=== PATIENT | male | born 1990 | race Caucasian/White ===

== ENCOUNTER 2018-10-21 21:04 | Inpatient (IN) | payer OTHER ==
[~2018-10-21] VITALS: Ht 180.3 cm; Wt 74.8 kg
[2018-10-21 21:14] VITALS: BP 133/83
[2018-10-21 23:40] LABS: ABSOLUTE BASOPHILS 0.1 thou/uL (0.0-0.2); ABSOLUTE EOSINOPHILS 0.1 thou/uL (0.0-0.7); ABSOLUTE MONOCYTES 0.6 thou/uL (0.0-1.2); ABSOLUTE NEUTROPHILS 4.7 thou/uL (1.6-8.1); BASOPHILS 0.9 %; EOSINOPHILS 0.8 %; HEMATOCRIT 40.1 % (42.0-52.0); HEMOGLOBIN 13.8 gm/dL (14.0-18.0); LYMPHOCYTES 26.8 %; MCH 32.2 pg (26.0-34.0); MCHC 34.4 g/dL (28.0-37.0); MCV 93.6 fL (80.0-100.0); MONOCYTES 7.6 %; MPV 8.2 fl. (7.2-11.1); NUCLEATED RBCS 0 /100WBC; PLATELET COUNT* 260 thou/uL (150-400); POLYS 63.9 %; RBC 4.29 mil/uL (4.50-6.00); RDW-CV 13.8 % (10.5-14.5); WBC 7.4 thou/uL (4.0-11.0)
[2018-10-22 00:24] LABS: ALBUMIN 3.9 g/dL (3.4-5.0); CREATININE 0.8 mg/dL (0.6-1.3); POTASSIUM 3.9 mmol/L (3.5-5.1); TOTAL BILIRUBIN 0.7 mg/dL (<0.1-1.0); TOTAL PROTEIN 8.5 g/dL (6.4-8.2)
[2018-10-22 00:55] VITALS: BP 128/82
[2018-10-22 01:20] VITALS: BP 123/74
[2018-10-22 08:00] VITALS: BP 122/62
[2018-10-22 11:48] LABS: APTT 28.9 Seconds (25.0-31.3); INR 1.1; PROTIME 11.7 Seconds (9.20-11.50)
--- NOTE | 2018-10-22 13:11 | EKG ---
[place] [address] ELECTROCARDIOGRAM REPORT Name: JUANA PRABHAKAR Room: [address] ADM IN M.R.#: [id number] Admission: 10/21/18 Attend Phys: Alexsander Rubin Discharge: Date of : 86 Report #: [id number] THIS REPORT FOR: //name// [facility] ED Test Date: 2018-10-22 Test Time: 00:22:33 Pat Name: JUANA PRABHAKAR Department: Room: [address] Gender: M Educational Specialist: COREY : 1990 Requested By: Rachel Gonsalez Order Number: [id number] MD: Artemio Best Measurements Intervals [place] Rate: 72 P: 51 WA: 165 QRS: 12 QRSD: 113 T: 43 QT: 402 QTc: 440 Interpretive Statements Sinus rhythm Borderline intraventricular conduction delay No previous ECG available for comparison Electronically Signed On 10-22-2018 13:11:21 CDT by Artemio Best [email or web address] <ELECTRONICALLY SIGNED> By: Artemio Best MD, MERGED WITH [facility] 10/22/18 1311 D: 0421 Artemio Best MD, FACC /EPI
[2018-10-22 15:10] LABS: URINE BILIRUBIN NEGATIVE (Negative); URINE BLOOD NEGATIVE (Negative); URINE CLARITY CLEAR; URINE COLOR YELLOW; URINE GLUCOSE-RANDOM NEGATIVE (Negative); URINE KETONES 2+ (Negative); URINE LEUKOCYTES-REFLEX NEGATIVE (Negative); URINE NITRITE-REFLEX NEGATIVE (Negative); URINE PROTEIN NEGATIVE (Negative); URINE SPECIFIC GRAVITY 1.015 (1.005-1.030); URINE UROBILINOGEN 0.2 E.U./dl (0.2-1.0)
[2018-10-23 05:19] LABS: ABSOLUTE EOSINOPHILS 0.2 thou/uL (0.0-0.7); ABSOLUTE LYMPHOCYTES 1.4 thou/uL (0.8-5.3); ABSOLUTE MONOCYTES 0.7 thou/uL (0.0-1.2); ABSOLUTE NEUTROPHILS 2.8 thou/uL (1.6-8.1); BASOPHILS 0.6 %; EOSINOPHILS 3.1 %; HEMOGLOBIN 12.4 gm/dL (14.0-18.0); LYMPHOCYTES 27.3 %; MCH 31.5 pg (26.0-34.0); MCHC 33.5 g/dL (28.0-37.0); MONOCYTES 13.3 %; MPV 8.7 fl. (7.2-11.1); NUCLEATED RBCS 0 /100WBC; PLATELET COUNT* 188 thou/uL (150-400); POLYS 55.7 %; RBC 3.94 mil/uL (4.50-6.00); RDW-CV 13.5 % (10.5-14.5); WBC 5.1 thou/uL (4.0-11.0)
[2018-10-23 05:40] LABS: ALBUMIN 2.9 g/dL (3.4-5.0); CALCIUM 8.1 mg/dL (8.5-10.1); CREATININE 0.7 mg/dL (0.6-1.3); MAGNESIUM 1.5 mg/dL (1.8-2.4); POTASSIUM 3.8 mmol/L (3.5-5.1); TOTAL BILIRUBIN 1.2 mg/dL (<0.1-1.0); TOTAL PROTEIN 6.9 g/dL (6.4-8.2)
[2018-10-23 07:20] VITALS: BP 133/88
[2018-10-23 09:12] LABS: HEPATITIS B SURFACE AG Negative (Negative)
[2018-10-23] MEDS ORDERED: NAPROSYN500 MG PO (09:37)
[2018-10-23] MEDS ORDERED: NORCO 7.5-3251 EACH PO (09:38)
[2018-10-23] MEDS ORDERED: SENNA S TABLET1 EACH PO (09:39)
[2018-10-23 09:42] VITALS: BP 133/88
[2018-10-23 09:48] VITALS: BP 133/88
[2018-10-23 09:52] VITALS: BP 133/88
[2018-10-23 10:25] VITALS: BP 133/88
[2018-10-23 11:55] VITALS: BP 133/88
== END 2018-10-23 11:58 | disposition home or self-care (01) | DRG 563 ==
LOC: M.ERS 21:04 → M.ORTHSURG 23:43 → M.TBA-ER 23:43 → M.ORTHSURG 10-22 00:56
PROVIDERS: Family Medicine; Nurse Practitioner Family; ADMIT Internal Medicine
DX: S82.141A Displaced bicondylar fracture of right tibia, initial encounter for closed fracture (principal); F17.210 Nicotine dependence, cigarettes, uncomplicated; B19.20 Unspecified viral hepatitis C without hepatic coma; X58.XXXA Exposure to other specified factors, initial encounter; Y93.89 Activity, other specified; Y92.89 Other specified places as the place of occurrence of the external cause; Y99.8 Other external cause status